=== PATIENT | female | born 1995 | race Two or more races ===

== ENCOUNTER 2021-12-27 21:34 | Emergency (ER) | payer SELFPAY ==
[~2021-12-27] VITALS: Ht 167.6 cm; Wt 79.4 kg
[2021-12-27 22:15] VITALS: BP 142/78
[2021-12-27] MEDS ORDERED: TDAP [DIPH/PERTUSSIS/TET] 0.5 ML VIAL IM ONE ×2 (22:30→22:53)
[2021-12-27] MEDS ORDERED: HYDROCODONE/APAP 5/325MG TABLET PO ONE (22:30)
[2021-12-27] MEDS ORDERED: LIDOCAINE 0.5% HCL 50 ML VIAL TP ONE (22:30)
[2021-12-27] MEDS ORDERED: HYDROCODONE/APAP 5/325MG TABLET ONE (22:53)
[2021-12-27] MEDS ORDERED: LIDOCAINE /MPF 1% VIAL 5 ML VIAL ONE (22:53)
[2021-12-27] MEDS ORDERED: NAPR-1164 PO (23:49)
--- NOTE | 2021-12-27 23:56 | NUR ---
Patient discharged to home in stable condition. Written and verbal after care instructions given. Patient verbalizes understanding of instruction.
== END 2021-12-28 00:04 | disposition home or self-care (01) ==
LOC: ER 21:37
DX: S61.512A Laceration without foreign body of left wrist, initial encounter (principal); F17.200 Nicotine dependence, unspecified, uncomplicated; W27.8XXA Contact with other nonpowered hand tool, initial encounter; Y93.89 Activity, other specified; Y92.89 Other specified places as the place of occurrence of the external cause; Y99.8 Other external cause status
CPT/HCPCS: 12001; 90471; 90715; 99283; J3490

== ENCOUNTER 2022-03-13 00:56 | Emergency (ER) | payer MEDICAID ==
[~2022-03-13] VITALS: Ht 167.6 cm; Wt 74.8 kg
[~2022-03-13 00:56] MED LIST: NAPR-1164 PO
--- NOTE | 2022-03-13 01:09 | NUR ---
BIBS C/O LEFT INDEX TOE PAIN XFEW DAYS. PT A/OX4. TOLERATING R/A WELL; RESP EVEN AND NON LABORED. AMBULATORY WITH STEADY GAIT. Addendum: 03/13/22 at 0125 by PAGE BIBS C/O LEFT GREAT TOE PAIN XFEW DAYS. PT A/OX4. TOLERATING R/A WELL; RESP EVEN AND NON LABORED. AMBULATORY WITH STEADY GAIT.
--- NOTE | 2022-03-13 01:12 | NUR ---
MANAGER OF CLINICAL AT PT'S BEDSIDE
[2022-03-13 01:50] VITALS: BP 138/88
--- NOTE | 2022-03-13 01:50 | NUR ---
Patient discharged to home in stable condition. Written and verbal after care instructions given. Patient verbalizes understanding of instruction.
== END 2022-03-13 01:51 | disposition home or self-care (01) ==
LOC: ER 00:59
DX: M79.675 Pain in left toe(s) (principal); F17.200 Nicotine dependence, unspecified, uncomplicated; W05.1XXA Fall from non-moving nonmotorized scooter, initial encounter; Y93.89 Activity, other specified; Y92.89 Other specified places as the place of occurrence of the external cause; Y99.8 Other external cause status
CPT/HCPCS: 73630-TC